=== PATIENT | female | born 1980 | race Two or more races ===

== ENCOUNTER 2016-07-22 22:28 | Inpatient (IN) | payer MEDICAID ==
[~2016-07-22] VITALS: Ht 167.6 cm; Wt 85.8 kg
[~2016-07-22 22:28] MED LIST: METF-316; METH500T2
[2016-07-22 23:01] LABS: Basophils # (auto) 0.1 uL; Basophils % (auto) 0.7 % (0.0-2.0); Eosinophils # (auto) 0.1 uL; Eosinophils % (auto) 0.8 % (0.0-7.0); Hematocrit 39.2 % (36.0-46.0); Hemoglobin 13.1 g/dL (12.2-16.2); Lymphocytes # (auto) 3.5 uL; Lymphocytes % (auto) 31.1 % (10.0-50.0); Mean Corpuscular Hgb Conc. 33.4 g/dL (32.0-36.0); Mean Corpuscular Volume 83.6 fL (80.0-100.0); Mean Platelet Volume 8.4 fL (7.4-10.4); Monocytes # (auto) 0.6 uL; Monocytes % (auto) 5.5 % (0.0-12.0); Neutrophils # (auto) 6.9 uL; Neutrophils % (auto) 61.9 % (37.0-80.0); Platelet Count (auto) 313 10^3/uL (140-450); Red Cell Distribution Width 15.3 % (11.6-16.0); White Blood Cell 11.1 10^3/uL (4.4-10.8)
[2016-07-22] MEDS ORDERED: SODIUM CHLORIDE 0.9% 2,000 ML IV ONE (23:15)
[2016-07-22] MEDS ORDERED: ONDANSETRON HCL 4 MG/2 ML VIAL IV ONE (23:15)
[2016-07-22 23:19] LABS: Albumin 3.7 g/dL (3.4-5.0); BUN/Creatinine Ratio 12.5; Calcium 9.5 mg/dL (8.5-10.1); INR 0.95 (0.9-1.15); Partial Thromboplastin Time 29.6 sec (22.64-33.71); Potassium 3.7 mmol/L (3.5-5.1); Prothrombin Time 10.4 sec (9.37-12.3)
[2016-07-22 23:22] LABS: Bilirubin, Total 0.3 mg/dL (0.2-1.0); Total Protein 8.1 g/dL (6.4-8.2)
[2016-07-23] MEDS ORDERED: IOHEXOL 300 MG/ML 100ML BOTTLE IJ ONE (00:08)
[2016-07-23] MEDS ORDERED: METOCLOPRAMIDE HCL 5MG/ml INJ 2ml VIAL IV ONE (00:15)
[2016-07-23] MEDS ORDERED: MORPHINE SULFATE 4 MG/ML SYRG IV ONE (00:15)
[2016-07-23] MEDS ORDERED: HYDROcodone-ACET 5/325MG TAB PO ONE (00:45)
[2016-07-23] MEDS ORDERED: LEVOFLOXACIN 500MG 100 ML IV ONE (10:15)
[2016-07-23] MEDS ORDERED: DEXTROSE (50%) 50ML SYRG IV PRN (10:15)
[2016-07-23] MEDS ORDERED: ACETAMINOPHEN 325 MG TAB PO PRN (10:30)
[2016-07-23] MEDS ORDERED: NITROGLYCERIN 0.4 MG SL TAB SL PRN (10:30)
[2016-07-23] MEDS ORDERED: TEMAZEPAM 15 MG CAP PO PRN (10:30)
[2016-07-23] MEDS: FLORASTOR (S. BOULARDII) 250 MG CAP PO SCH (11:00)
[2016-07-23] MEDS ORDERED: FAMOTIDINE 20 MG TAB PO SCH (11:00)
[2016-07-23] MEDS: SODIUM CHLORIDE 0.9% 1,000 ML IV SCH (11:30)
[2016-07-23] MEDS: InsuLIN REG 1unit/0.01ml Soln (100units/ml) SC SCH ×3 (12:00→21:22)
[2016-07-23] MEDS: CALCIUM CARB 500 MG CHEW TAB PO SCH ×2 (12:00→18:32)
[2016-07-23] MEDS: ACCU-CHEK COMFORT CURVE STRIP VI SCH ×3 (12:00→21:22)
[2016-07-23 12:15] LABS: Hematocrit 33.7 % (36.0-46.0); Hemoglobin 11.2 g/dL (12.2-16.2)
[2016-07-23] MEDS: metroNIDAZOLE 500MG/100ML 100 ML IV SCH ×2 (12:35→18:22)
[2016-07-23] MEDS: ONDANSETRON HCL 4 MG/2 ML VIAL IV PRN ×2 (12:40→22:46)
[2016-07-23] MEDS: GOLYTELY 4L KIT PO ONE ×2 (15:00→19:44)
[2016-07-23] MEDS: FERROUS SULFATE 325 MG TAB PO SCH (18:32)
[2016-07-23 19:56] LABS: Hematocrit 32.9 % (36.0-46.0); Hemoglobin 11.2 g/dL (12.2-16.2)
[2016-07-23] MEDS: PANTOPRAZOLE 40 MG TAB PO SCH (21:07)
[2016-07-23 22:00] VITALS: BP 152/79
[2016-07-24] MEDS: metroNIDAZOLE 500MG/100ML 100 ML IV SCH ×5 (00:11→23:16)
[2016-07-24] MEDS: SODIUM CHLORIDE 0.9% 1,000 ML IV SCH ×4 (00:21→19:02)
[2016-07-24 02:42] LABS: Urine RBC None Seen /hpf (0 - 4)
[2016-07-24 03:29] LABS: Urine Bilirubin Negative (Negative); Urine Blood Negative /uL (Negative); Urine Color Yellow (Yellow); Urine Glucose Normal (Normal); Urine Mucus FEW (None Seen); Urine Nitrite Negative (Negative); Urine Squamous Epithelial Cell FEW /hpf (<5); Urine Urobilinogen Normal (Negative)
[2016-07-24 03:30] LABS: Urine Ketone 2+ (Negative)
[2016-07-24 05:42] VITALS: BP 145/77
[2016-07-24 05:52] LABS: Basophils # (auto) 0 uL; Basophils % (auto) 0.3 % (0.0-2.0); Eosinophils # (auto) 0.1 uL; Eosinophils % (auto) 1.3 % (0.0-7.0); Hematocrit 32.4 % (36.0-46.0); Hemoglobin 10.8 g/dL (12.2-16.2); Lymphocytes # (auto) 2.8 uL; Lymphocytes % (auto) 34.3 % (10.0-50.0); Mean Corpuscular Hemoglobin 28.1 pg (28.0-32.0); Mean Corpuscular Hgb Conc. 33.5 g/dL (32.0-36.0); Mean Platelet Volume 8.7 fL (7.4-10.4); Monocytes # (auto) 0.6 uL; Neutrophils # (auto) 4.6 uL; Neutrophils % (auto) 57.1 % (37.0-80.0); Platelet Count (auto) 225 10^3/uL (140-450); Red Cell Distribution Width 15.3 % (11.6-16.0); White Blood Cell 8.1 10^3/uL (4.4-10.8)
[2016-07-24] MEDS: ACCU-CHEK COMFORT CURVE STRIP VI SCH ×4 (05:57→22:02)
[2016-07-24] MEDS: InsuLIN REG 1unit/0.01ml Soln (100units/ml) SC SCH ×4 (05:57→22:00)
[2016-07-24 06:07] LABS: Albumin 2.8 g/dL (3.4-5.0); Calcium 8.5 mg/dL (8.5-10.1); Potassium 3.7 mmol/L (3.5-5.1)
[2016-07-24 06:11] LABS: Bilirubin, Total 0.3 mg/dL (0.2-1.0); Total Protein 6.4 g/dL (6.4-8.2)
[2016-07-24] MEDS: FERROUS SULFATE 325 MG TAB PO SCH ×2 (08:00→17:14)
[2016-07-24] MEDS: CALCIUM CARB 500 MG CHEW TAB PO SCH ×3 (08:00→17:14)
[2016-07-24] MEDS ORDERED: SODIUM CHLORIDE LOCK 10 ML ONE (08:29)
[2016-07-24] MEDS ORDERED: diphenhdrAMINE HCL 50 MG/1 ML VL ONE (08:30)
[2016-07-24] MEDS ORDERED: LIDOCAINE VISCOUS 2% 15ML UD ONE (08:30)
[2016-07-24 08:57] VITALS: BP 138/88
[2016-07-24] MEDS: MULTIPLE VITAMIN TAB PO SCH (09:00)
[2016-07-24] MEDS: FLORASTOR (S. BOULARDII) 250 MG CAP PO SCH (09:02)
[2016-07-24] MEDS: PANTOPRAZOLE 40 MG TAB PO SCH (09:02)
[2016-07-24] MEDS: LEVOFLOXACIN 500MG 100 ML IV SCH (09:03)
[2016-07-24] MEDS: POTASSIUM CHL 10 Meq TABLET PO SCH (09:03)
[2016-07-24 13:00] VITALS: BP 156/92
[2016-07-24] MEDS: fentaNYL CITRATE 100 MCG/2 ML VL ONE ×4 (13:24→13:42)
[2016-07-24] MEDS: MIDAZOLAM HCL 5 MG/ML-1ML VIAL ONE ×4 (13:24→13:42)
[2016-07-24 16:46] VITALS: BP 139/75
[2016-07-24] MEDS: ONDANSETRON HCL 4 MG/2 ML VIAL IV PRN (21:30)
[2016-07-24] MEDS: HYDROmorphone HCL 2 MG/ML VL IV PRN (21:31)
[2016-07-24 22:16] VITALS: BP 173/87
[2016-07-24] MEDS: HYDROcodone-ACET 5/325MG TAB PO PRN (23:20)
[2016-07-25] MEDS: SODIUM CHLORIDE 0.9% 1,000 ML IV SCH ×3 (03:56→23:38)
[2016-07-25 05:07] VITALS: BP 162/78
[2016-07-25] MEDS: metroNIDAZOLE 500MG/100ML 100 ML IV SCH (05:27)
[2016-07-25] MEDS: ONDANSETRON HCL 4 MG/2 ML VIAL IV PRN ×2 (05:39→11:23)
[2016-07-25] MEDS: HYDROmorphone HCL 2 MG/ML VL IV PRN ×2 (05:39→11:22)
[2016-07-25] MEDS: ACCU-CHEK COMFORT CURVE STRIP VI SCH ×4 (06:31→22:00)
[2016-07-25] MEDS: InsuLIN REG 1unit/0.01ml Soln (100units/ml) SC SCH ×4 (06:32→22:00)
[2016-07-25 07:04] LABS: Basophils # (auto) 0 uL; Basophils % (auto) 0.3 % (0.0-2.0); Eosinophils # (auto) 0.1 uL; Eosinophils % (auto) 0.9 % (0.0-7.0); Hematocrit 33.5 % (36.0-46.0); Lymphocytes # (auto) 2.1 uL; Lymphocytes % (auto) 32.4 % (10.0-50.0); Mean Corpuscular Hgb Conc. 32.7 g/dL (32.0-36.0); Mean Corpuscular Volume 85.7 fL (80.0-100.0); Mean Platelet Volume 8.8 fL (7.4-10.4); Monocytes # (auto) 0.4 uL; Monocytes % (auto) 6.2 % (0.0-12.0); Neutrophils # (auto) 3.9 uL; Neutrophils % (auto) 60.2 % (37.0-80.0); Platelet Count (auto) 177 10^3/uL (140-450); Red Cell Distribution Width 15.7 % (11.6-16.0); White Blood Cell 6.5 10^3/uL (4.4-10.8)
[2016-07-25 07:35] LABS: BUN/Creatinine Ratio 7.1; Bilirubin, Total 0.5 mg/dL (0.2-1.0); Calcium 8.4 mg/dL (8.5-10.1); Potassium 3.9 mmol/L (3.5-5.1); Total Protein 6.4 g/dL (6.4-8.2)
[2016-07-25] MEDS: CALCIUM CARB 500 MG CHEW TAB PO SCH ×3 (08:00→18:00)
[2016-07-25] MEDS: FERROUS SULFATE 325 MG TAB PO SCH ×2 (08:00→18:00)
[2016-07-25] MEDS: LEVOFLOXACIN 500MG 100 ML IV SCH (09:06)
[2016-07-25] MEDS: POTASSIUM CHL 10 Meq TABLET PO SCH (09:07)
[2016-07-25] MEDS: HYDROcodone-ACET 5/325MG TAB PO PRN ×2 (09:07→23:37)
[2016-07-25] MEDS: FLORASTOR (S. BOULARDII) 250 MG CAP PO SCH (09:08)
[2016-07-25] MEDS: MULTIPLE VITAMIN TAB PO SCH (09:08)
[2016-07-25] MEDS: PANTOPRAZOLE 40 MG TAB PO SCH (09:09)
[2016-07-25 09:15] VITALS: BP 144/69
[2016-07-25 12:07] VITALS: BP 168/92
[2016-07-25 16:54] VITALS: BP 178/88
[2016-07-25 22:00] VITALS: BP 165/81
[2016-07-26] MEDS: SODIUM CHLORIDE 0.9% 1,000 ML IV SCH (04:56)
[2016-07-26 05:00] VITALS: BP 156/82
[2016-07-26] MEDS: InsuLIN REG 1unit/0.01ml Soln (100units/ml) SC SCH (07:00)
[2016-07-26] MEDS: ACCU-CHEK COMFORT CURVE STRIP VI SCH (07:00)
[2016-07-26] MEDS: FERROUS SULFATE 325 MG TAB PO SCH (08:00)
[2016-07-26] MEDS: CALCIUM CARB 500 MG CHEW TAB PO SCH (08:00)
[2016-07-26 09:13] VITALS: BP 162/87
[2016-07-26] MEDS: MULTIPLE VITAMIN TAB PO SCH (10:00)
[2016-07-26] MEDS: FLORASTOR (S. BOULARDII) 250 MG CAP PO SCH (10:00)
[2016-07-26] MEDS: PANTOPRAZOLE 40 MG TAB PO SCH (10:07)
[2016-07-26] MEDS: POTASSIUM CHL 10 Meq TABLET PO SCH (10:07)
== END 2016-07-26 10:45 | disposition home or self-care (01) | DRG 241 ==
LOC: ER 22:28 → EDBD 22:28 → TELE 22:29 → TELE-CENTR 07-23 18:43 → CENTRAL 07-25 23:55
PROVIDERS: ADMIT Internal Medicine; ATTEND Internal Medicine
PROC: 0DB68ZX Excision of Stomach, Via Natural or Artificial Opening Endoscopic, Diagnostic (ICD-10-PCS; principal; 2016-07-24 13:20)
PROC: 0DJD8ZZ Inspection of Lower Intestinal Tract, Via Natural or Artificial Opening Endoscopic (ICD-10-PCS; 2016-07-24 13:20)
DX: K29.70 Gastritis, unspecified, without bleeding (principal); E44.0 Moderate protein-calorie malnutrition; E86.0 Dehydration; K64.8 Other hemorrhoids; I10 Essential (primary) hypertension; E11.9 Type 2 diabetes mellitus without complications; Z88.5 Allergy status to narcotic agent; Z88.0 Allergy status to penicillin; Z83.3 Family history of diabetes mellitus; Z98.84 Bariatric surgery status; Z68.30 Body mass index [BMI] 30.0-30.9, adult
CPT/HCPCS: 36415; 43239; 45378; 74177; 80053; 81001; 82150; 82962; 83036; 83690; 84702; 85014; 85018; 85025; 85610; 85730; 87045; 87086; 87493; 87899; 96361; 96365; 96375; J1956; J2250; J2405; J3490

== ENCOUNTER 2017-02-24 20:43 | Emergency (ER) | payer MEDICAID ==
[~2017-02-24] VITALS: Ht 162.6 cm; Wt 67.1 kg
[2017-02-24 20:52] VITALS: BP 190/85
[2017-02-24] MEDS ORDERED: ACETAMINOPHEN 500 MG TAB PO ONE (22:30)
== END 2017-02-24 23:25 | disposition home or self-care (01) ==
LOC: ER 20:43
DX: S90.111A Contusion of right great toe without damage to nail, initial encounter (principal); E11.9 Type 2 diabetes mellitus without complications; I10 Essential (primary) hypertension; Z88.0 Allergy status to penicillin; Z88.6 Allergy status to analgesic agent; W01.0XXA Fall on same level from slipping, tripping and stumbling without subsequent striking against object, initial encounter; Y93.89 Activity, other specified; Y99.8 Other external cause status; Y92.89 Other specified places as the place of occurrence of the external cause
CPT/HCPCS: 73630; 81025

== ENCOUNTER → 2019-06-02 | Outpatient (CLI) | payer OTHER ==
[~2019-06-02] MED LIST changes: +CEPH-37 PO; +LABE100T4 PO; -METF-316; -METH500T2
== END | disposition home or self-care (01) ==
LOC: LAB 15:49
PROVIDERS: ATTEND Physician Assistant
DX: Z03.818 Encounter for observation for suspected exposure to other biological agents ruled out (principal)
CPT/HCPCS: C9803; U0003

== ENCOUNTER 2021-04-16 08:20 | Emergency (ER) | payer MEDICAID, OTHER ==
[~2021-04-16] VITALS: Ht 162.6 cm; Wt 63.5 kg
[2021-04-16] MEDS ORDERED: SODIUM CHLORIDE 0.9% 1,000 ML IV ONE ×2 (09:30)
[2021-04-16 10:14] LABS: Basophils # (auto) 0 10 ^3/uL (0-0.2); Eosinophils # (auto) 0.1 10 ^3/uL (0-0.8); Eosinophils % (auto) 1.1 % (0.0-7.0); Hemoglobin 10.3 g/dL (12.2-16.2); Lymphocytes # (auto) 1.6 10 ^3/uL (0.4-5.4); Monocytes # (auto) 0.4 10 ^3/uL (0-1.3); Neutrophils % (auto) 57.5 % (37.0-80.0); Nucleated Red Blood Cells % 0.1 %
[2021-04-16 10:16] LABS: Basophils % (auto) 0.3 % (0.0-2.0); Hematocrit 31.9 % (36.0-46.0); Lymphocytes % (auto) 32.8 % (10.0-50.0); Mean Corpuscular Hemoglobin 23.5 pg (28.0-32.0); Mean Corpuscular Hgb Conc. 32.3 g/dL (32.0-36.0); Mean Corpuscular Volume 72.8 fL (80.0-100.0); Monocytes % (auto) 8.3 % (0.0-12.0); Neutrophils # (auto) 2.9 10 ^3/uL (1.6-8.6); Red Blood Cells 4.39 10^6/uL (4.0-5.20); Red Cell Distribution Width 15.5 % (11.8-14.3)
[2021-04-16 10:21] LABS: Calcium 8.8 mg/dL (8.5-10.1); Potassium 3.9 mmol/L (3.5-5.1)
[2021-04-16 10:24] LABS: BUN/Creatinine Ratio 17.7; Bilirubin, Total 0.2 mg/dL (0.2-1.0); Total Protein 7.8 g/dL (6.4-8.2)
[2021-04-16 11:02] LABS: Urine Bacteria FEW /hpf (None Seen); Urine Blood Negative /uL (Negative); Urine Mucus FEW (None Seen); Urine Specific Gravity 1.019 (1.001-1.035); Urine WBC 1 /hpf (0 - 5)
[2021-04-16 12:15] LABS: INR 1.05 (0.9-1.15); Partial Thromboplastin Time 26.5 sec (23.6-33.0)
[2021-04-16 12:55] VITALS: BP 134/80
== END 2021-04-16 13:08 | disposition home or self-care (01) ==
LOC: ER 08:20
DX: R10.31 Right lower quadrant pain (principal); I10 Essential (primary) hypertension; E11.9 Type 2 diabetes mellitus without complications; Z79.899 Other long term (current) drug therapy; Z88.0 Allergy status to penicillin; Z88.5 Allergy status to narcotic agent
CPT/HCPCS: 36415; 74177; 80053; 81001; 85025; 85610; 85730; 96360; 96361; 99285; J7030; Q9967